=== PATIENT | male | born 1980 | race Hispanic/Latino ===

== ENCOUNTER 2023-12-16 09:59 | Inpatient (IN) | payer SELFPAY ==
[2023-12-16 10:44] LABS: #Basophils 0.09 10x3/uL (0.0-0.2); %Basophils 0.8 % (0.0-1.0); %Eosinophils 1.1 % (0.0-10.0); %Lymphocytes 29.4 % (21.0-51.0); %Monocytes 6.6 % (0.0-10.0); %Neutrophils 61.1 % (42.0-75.0); Hematocrit 42.2 % (42.0-52.0); Hemoglobin 14.3 g/dL (14.0-18.0); Mean Corpuscular HGB CONC 33.9 g/dL (32.0-36.0); Mean Corpuscular Hemoglobin 30.2 pg (27.0-31.0); Mean Platelet Volume 10.7 fL (7.4-10.4); Platelet Count 209 10x3/uL (130-400); RBC Distribution Width 13.2 % (11.5-14.5); Red Blood Cell (RBC) Count 4.74 mill/uL (4.70-6.10)
[2023-12-16] MEDS ORDERED: Acetaminophen/Codeine 30-300mg Tablet PO PRN (10:46)
[2023-12-16] MEDS ORDERED: Ondansetron ODT 4 MG TAB PO PRN (10:46)
[2023-12-16] MEDS ORDERED: Acetaminophen 325 MG TAB PO PRN (10:46)
[2023-12-16] MEDS ORDERED: Ondansetron PF 4 MG/2 ML Vial IVP PRN ×2 (10:46→13:31)
[2023-12-16] MEDS ORDERED: hydrALAZINE 20 MG/ML VIAL SLOW IVP PRN (10:46)
[2023-12-16] MEDS ORDERED: HYDROcodone/Acetaminophen 5/325 mg Tablet PO PRN (10:46)
[2023-12-16] MEDS ORDERED: HYDROmorphone 0.5 MG/0.5 ML SYRINGE ONE ×3 (10:51→14:26)
[2023-12-16 10:52] LABS: Alcohol Less than 10.0 mg/dL (Less than 10)
[2023-12-16] MEDS ORDERED: Ondansetron PF 4 MG/2 ML Vial ONE ×2 (10:52→11:42)
[2023-12-16] MEDS ORDERED: CEFAZOLIN 2 GM VIAL ONE (10:52)
[2023-12-16] MEDS ORDERED: Boostrix 0.5 ML (Tdap) VIAL (>/=7 yrs of age) ONE (10:52)
[2023-12-16 10:55] LABS: ALT (SGPT) 37 U/L (8-55); AST (SGOT) 30 U/L (5-34); Albumin 3.9 g/dL (3.5-5.0); Alkaline Phosphatase 59 U/L (40-110); Anion Gap 14 mmol/L (10-20); BUN (Urea Nitrogen) 18 mg/dL (8.9-20.6); Bilirubin, Total 0.4 mg/dL (0.2-1.2); Calc. Creatinine Clearance 0 mL/min (70-130); Calcium 9.2 mg/dL (7.8-10.44); Carbon Dioxide 24 mmol/L (22-29); Chloride 110 mmol/L (98-107); Estimated GFR 116; Globulin 3.5 g/dL (2.4-3.5); Glucose 145 mg/dL (70-105); Potassium 4.1 mmol/L (3.5-5.1); Protein, Total 7.4 g/dL (6.0-8.3); Sodium 144 mmol/L (136-145)
[2023-12-16 11:01] LABS: Prothrombin Time 12.7 sec (12.0-14.7)
[2023-12-16] MEDS ORDERED: Bacitracin Zinc Ointment 30 gm TUBE ONE (11:07)
[2023-12-16] MEDS ORDERED: Famotidine/PF 20 mg/2ml Vial ONE (11:33)
[2023-12-16] MEDS ORDERED: Lidocaine 2% PF 5 ML VIAL ONE (11:41)
[2023-12-16] MEDS ORDERED: PROPOFOL 20 ML ONE (11:41)
[2023-12-16] MEDS ORDERED: SUCCINYLCHOLINE/SOD CL,ISO/PF 200 MG/10 ML SYRINGE FS ONE (11:42)
[2023-12-16] MEDS ORDERED: Dexamethasone 4 mg/ml Vial ONE (11:42)
[2023-12-16] MEDS ORDERED: fentaNYL PF 100 MCG/2 ML SYRINGE ONE (11:43)
[2023-12-16] MEDS ORDERED: PHENYLEPHRINE-NS 100 MCG/ML 10 ML SYRINGE ONE (12:06)
[2023-12-16] MEDS ORDERED: Ketorolac Tromethamine 30 MG (1 mL) VIAL ONE (12:39)
[2023-12-16] MEDS ORDERED: fentaNYL 50 mcg/mL 1 mL Vial ONE ×4 (12:55→14:53)
[2023-12-16] MEDS ORDERED: Ondansetron HCl/PF 4 MG/2 ML Vial IVP PRN (13:04)
[2023-12-16] MEDS ORDERED: HYDROmorphone 2 MG/ML VIAL SLOW IVP PRN (13:04)
[2023-12-16] MEDS ORDERED: Meperidine HCl/PF 25 MG/ML VIAL SLOW IVP PRN (13:04)
[2023-12-16] MEDS ORDERED: Promethazine HCl 25 MG/ML VIAL IM PRN (13:04)
[2023-12-16] MEDS ORDERED: SUGAMMADEX SODIUM 200 MG/2 ML VIAL ONE (13:12)
[2023-12-16] MEDS ORDERED: Dextrose 50% Abboject 50 ML SYRINGE SLOW IVP PRN (13:31)
[2023-12-16] MEDS ORDERED: Dextrose 5% in Water 1,000 ML IV PRN (13:31)
[2023-12-16] MEDS ORDERED: HYDROcodone/Acetaminophen 10/325 mg Tablet PO PRN (13:31)
[2023-12-16] MEDS ORDERED: Ipratropium/Albuterol 3 ML NEB NEB PRN (13:31)
[2023-12-16] MEDS ORDERED: Glucagon 1 MG/ML KIT IM PRN (13:31)
[2023-12-16] MEDS ORDERED: CEFAZOLIN 1 GM VIAL SLOW IVP SCH (14:00)
[2023-12-16] MEDS ORDERED: HYDROmorphone 2 MG/ML VIAL ONE (14:25)
[2023-12-16] MEDS: TETANUS, DIPHTHERIA TOX,ADULT (TDVAX) 0.5 ML VIAL IM ONE (20:26)
[2023-12-16] MEDS: Lactated Ringer's 1,000 ML IV SCH (20:26)
[2023-12-16 20:28] VITALS: BMI 41.8
[2023-12-16] MEDS: CEFAZOLIN 2 GM in Sodium Chloride 0.9% 100 ML IVPB SCH ×2 (20:28→21:11)
[2023-12-16] MEDS ORDERED: Famotidine 20 MG TAB PO SCH (21:00)
[2023-12-16] MEDS: Senokot 8.6 MG TAB PO SCH (21:10)
[2023-12-16] MEDS: Famotidine 20 MG TAB PO SCH (21:11)
[2023-12-16] MEDS: Docusate 100 MG CAP PO SCH (21:11)
[2023-12-17 06:05] LABS: #Basophils 0.03 10x3/uL (0.0-0.2); #Eosinphils Less than 0.03 10x3/uL (0.0-0.7); %Basophils 0.2 % (0.0-1.0); %Lymphocytes 10.2 % (21.0-51.0); %Monocytes 7.8 % (0.0-10.0); %Neutrophils 81.2 % (42.0-75.0); Hematocrit 32.5 % (42.0-52.0); Hemoglobin 10.5 g/dL (14.0-18.0); Mean Corpuscular HGB CONC 32.3 g/dL (32.0-36.0); Mean Corpuscular Hemoglobin 30.4 pg (27.0-31.0); Mean Corpuscular Volume 94.2 fL (78.0-98.0); Mean Platelet Volume 10.5 fL (7.4-10.4); Platelet Count 196 10x3/uL (130-400); RBC Distribution Width 14.3 % (11.5-14.5); Red Blood Cell (RBC) Count 3.45 mill/uL (4.70-6.10)
[2023-12-17 06:14] VITALS: TEMP 98
[2023-12-17 06:19] LABS: Anion Gap 13 mmol/L (10-20); BUN (Urea Nitrogen) 20 mg/dL (8.9-20.6); Calc. Creatinine Clearance 206 mL/min (70-130); Calcium 8.3 mg/dL (7.8-10.44); Carbon Dioxide 23 mmol/L (22-29); Chloride 109 mmol/L (98-107); Estimated GFR 116; Glucose 141 mg/dL (70-105); Potassium 4.1 mmol/L (3.5-5.1); Sodium 141 mmol/L (136-145)
[2023-12-17 07:45] VITALS: BP 109/68
[2023-12-17] MEDS: Enoxaparin 30 MG (0.3 mL) SYRINGE SC SCH (10:13)
[2023-12-18] MEDS ORDERED: Enoxaparin 40 MG (0.4 mL) SYRINGE SC SCH (09:00)
== END 2023-12-17 18:19 | disposition home or self-care (01) | DRG 605 ==
LOC: ERS 09:59 → ERHOLD 10:46 → SURG A 11:45 → OBSVTOIN 13:31 → EDBD 13:31 → SURG A 20:08
PROVIDERS: ADMIT Surgery; ATTEND Surgery
PROC: 0HQ0XZZ Repair Scalp Skin, External Approach (ICD-10-PCS; principal; 2023-12-16)
DX: S01.01XA Laceration without foreign body of scalp, initial encounter (principal); W20.8XXA Other cause of strike by thrown, projected or falling object, initial encounter; K21.9 Gastro-esophageal reflux disease without esophagitis; Y93.01 Activity, walking, marching and hiking; Y92.89 Other specified places as the place of occurrence of the external cause
CPT/HCPCS: 36415; 36430; 70450; 72125; 80048; 80053; 80307; 85025; 85610; 86850; 86900; 86901; 90715; 96365; 96375; 97139; G0378; G0390; J1100; J1170; J1650; J1885; J2001; J2405; J2704; J3010; J3490; J7120; P9016; P9035

== ENCOUNTER 2024-01-03 11:24 | Emergency (ER) | payer SELFPAY | END 2024-01-03 11:59 | disposition home or self-care (01) | LOC: ERS 11:24 | DX: S01.01XD Laceration without foreign body of scalp, subsequent encounter (principal); Z75.8 Other problems related to medical facilities and other health care ==